=== PATIENT | female | born 1945 | race Caucasian/White ===

== ENCOUNTER 2021-02-05 16:21 | Emergency (ER) | payer SELFPAY ==
--- NOTE | 2021-02-05 16:59 | EDM.PDOC ---
ED HPI GENERAL MEDICAL PROBLEM - General Chief Complaint: ENT Problem Stated Complaint: MEDICAL [facility] Time Seen by Provider: 02/05/21 17:29 Source of Information: Reports: Patient, RN Notes Reviewed History Limitations: Reports: No Limitations - History of Present Illness INITIAL COMMENTS - FREE TEXT/NARRATIVE: 75-year-old female presents emergency department day complaint of nosebleed, she recently had knee surgery done and started on Lovenox she has an extensive history of multiple nosebleeds has been packed several times has been cauterized multiple times has had nosebleed issues throughout her whole life. - Related Data Allergies Allergy/AdvReac Type Severity Reaction Status Date / Time acetaminophen Allergy Cannot Verified 02/05/21 16:43 [From Excedrin Extra Remember Strength] aspirin Allergy Nose Bleeds Verified 02/05/21 16:43 ciprofloxacin Allergy Hives Verified 02/05/21 16:43 erythromycin base Allergy Vomiting Verified 02/05/21 16:43 lisinopril Allergy Cough Verified 02/05/21 16:43 nitrous oxide Allergy Agitation Verified 02/05/21 16:43 oxycodone Allergy Rash Verified 02/05/21 16:43 Penicillins Allergy Cannot Verified 02/05/21 16:43 Remember phenytoin [From Dilantin] Allergy Seizure Verified 02/05/21 16:43 Sulfa (Sulfonamide Allergy Rash Verified 02/05/21 16:43 Antibiotics) pet dander Allergy Airway Uncoded 02/05/21 16:43 Tightness tape Allergy Rash Uncoded 02/05/21 16:43 Home Meds: Home Meds ALPRAZolam [Xanax] 1 tab PO Q8H 02/05/21 [History] Aspirin [Halfprin] 1 tab PO ASDIRECTED 02/05/21 [History] Calcium Carb, Citrate/Vit D3 [Calcium + D3 ER Tablet] 1 tab PO BID 02/05/21 [History] Furosemide [Lasix] 60 mg PO QAM 02/05/21 [History] HYDROmorphone HCl [Hydromorphone HCl] 1 tab PO Q3H 02/05/21 [History] Iron Polysaccharides Complex [Ferrex 150] 1 tab PO DAILY 02/05/21 [History] Loratadine [Claritin] 1 cap PO DAILY 02/05/21 [History] Losartan Potassium 1 tab PO DAILY 02/05/21 [History] Meclizine HCl 1 tab PO Q4H PRN 02/05/21 [History] Mirtazapine 1 tab PO DAILY 02/05/21 [History] Multivitamin 1 tab PO DAILY 02/05/21 [History] Pantoprazole [ProTONIX] 1 tab PO DAILY 02/05/21 [History] Sennosides/Docusate Sodium [Senna-Docusate Sodium Tablet] 1 tab PO BID 02/05/21 [History] Sertraline HCl [Zoloft] 250 mg PO DAILY 02/05/21 [History] busPIRone HCl [Buspirone HCl] 15 mg PO BID 02/05/21 [History] lamoTRIgine [Lamotrigine] 150 mg PO BID 02/05/21 [History] levETIRAcetam [Keppra Xr] 1,000 mg PO BID 02/05/21 [History] polyethylene glycoL 3350 [MiraLAX] 17 gr PO DAILY 02/05/21 [History] ED ROS ENT - Review of Systems Review Of Systems: See Below Constitutional: Reports: No Symptoms HEENT: Reports: Nosebleed Respiratory: Reports: No Symptoms Cardiovascular: Reports: No Symptoms ED EXAM, ENT - Physical Exam Exam: See Below Text/Narrative:: Patient did blow large clots were removed nose clamp in place unfortunately she kept bleeding through the nose clamp and drainage in the back of the throat bright red blood. Elected to proceed combination TTX and nasal tampon Exam Limited By: No Limitations General Appearance: Alert, Mild Distress ED ENT PROCEDURES - Epistaxis Procedure Indication: Epistaxis Recent anticoagulants/antiplatlets: Yes Uncontrolled HTN: No Recent septal/nasal surgery: No Site of bleeding: Left Nare Clearing of clots: Patient Blew Nose Anterior Packing: Nasal Tampon, Other (TTX) Posterior packing: Long Nasal Tampon Local Anesthetic Volume: 3cc Complications: No Course - Vital Signs Last Recorded V/S: Last Vital Signs Temp Pulse 117 H 02/05/21 17:13 Resp BP 139/87 02/05/21 17:13 Pulse Ox - Orders/Labs/Meds Meds: Medications Discontinued Medications Generic Name Dose Route Start Last Admin Trade Name Freq PRN Reason Stop Dose Admin Tranexamic Acid 500 mg 02/05/21 16:52 02/05/21 17:02 Tranexamic Acid 1,000 Mg/10 Ml Amp TOP 02/05/21 16:53 500 mg ONETIME ONE Administration Departure - Departure Time of Disposition: 17:29 Disposition: Home, Self-Care 01 Condition: Fair Clinical Impression: Epistaxis - Discharge Information Instructions: Nosebleed, [id number] Referrals: PCP,None [Primary Care Provider] - Forms: ED Department Discharge Additional Instructions: Leave the rocket in place for the next couple of days, follow-up with your primary care in the next 2 to 3 days for reevaluation, call return to the emergency department worsening of symptoms Sepsis Event Note (ED) - Focused Exam Vital Signs: Vital Signs Pulse BP 02/05/21 17:13 117 H 139/87 - Assessment/Plan Plan: Assessment Acuity = acute Site and laterality = Epistaxis left nares Etiology = probably related to Lovenox Manifestations = none Location of injury = Home Lab values = none Plan Rocket removal in 3 days follow-up with primary care, call return to the emergency department worsening symptoms This note was dictated using [email or web address] voice recognition software please call with any questions on syntax or grammar.
== END 2021-02-05 19:23 | disposition home or self-care (01) ==
LOC: JP.ED 16:21
DX: R04.0 Epistaxis (principal); Z88.6 Allergy status to analgesic agent; Z88.8 Allergy status to other drugs, medicaments and biological substances; Z88.1 Allergy status to other antibiotic agents; Z88.5 Allergy status to narcotic agent; Z88.0 Allergy status to penicillin; Z88.2 Allergy status to sulfonamides; Z91.048 Other nonmedicinal substance allergy status; Z79.82 Long term (current) use of aspirin; Z79.899 Other long term (current) drug therapy
CPT/HCPCS: 99283